=== PATIENT | female | born 1990 | race Caucasian/White ===

== ENCOUNTER 2018-12-03 01:53 | Emergency (ER) | payer BC, OTHER ==
[~2018-12-03] VITALS: Ht 175.3 cm; Wt 69.0 kg
[2018-12-03 01:55] VITALS: Ht 175.3 cm; Wt 69.0 kg
[2018-12-03] MEDS ORDERED: SOD CHLORIDE 0.9% 500 ML IV STA (02:39)
[2018-12-03] MEDS ORDERED: KETOROLAC 30 MG INJ IV STA (02:39)
[2018-12-03] MEDS ORDERED: morphine 2 MG INJ IV STA (02:39)
[2018-12-03] MEDS ORDERED: ONDANSETRON 4 MG INJ IV STA (02:39)
--- NOTE | 2018-12-03 03:52 | ERD ---
ER Documentation Chief Complaint Chief Complaint LOW BACK PAIN HPI This is a 27-year-old female with a nonsignificant past medical history presents ED with complaints of right low back pain that started this evening. Patient describes the back pain is sharp and states that is been constant. Denies any fall or injury to account for right low back pain. No similar pain in the past. Admits to nausea. Patient denies any dysuria, hematuria, increased frequency of urination, fever, chills, vomiting, ABDOMINAL PAIN, diarrhea, constipation, hemoptysis, hematemesis, hematochezia, melena, chest pain, shortness of breath, cough, congestion and all other symptoms. No IVDA ROS All systems reviewed and are negative except as per history of present illness. Allergies Allergies: Coded Allergies: No Known Allergy (Unverified , 12/03/18) PMhx/Soc Medical and Surgical Hx: pt denies Medical Hx, pt denies Surgical Hx Hx Alcohol Use: Yes (occassionally) Hx Substance Use: Yes (marijuana) Hx Tobacco Use: No Smoking Status: Current every day smoker FmHx Family History: No diabetes Physical Exam Vitals Vital Signs Date Temp Pulse Resp B/P (MAP) Pulse Ox O2 O2 Flow FiO2 Time Delivery Rate 12/03/18 99.0 74 18 109/59 97 01:55 (76) Physical Exam Physical Exam Vitals signs: Reviewed by me. General: Well developed, well nourished, in no acute distress. Patient is awake and alert. Head: Normocephalic, atraumatic. Eyes: Normal conjunctiva, Pupils PERRLA, EOM intact grossly ENT: Pharynx is clear, Moist mucous membranes, external ears, nose and mouth n ormal Neck: Supple, no masses, lymphadenopathy or JVD Respiratory: Clear to auscultation bilaterally with no wheezing, rhonchi, rales, no distress Cardiovascular: RRR, no murmurs, rubs, or gallops Abdominal: Soft, nondistended, no peritoneal signs, no rigidity, no surgical abdomen, bowel sounds present all 4 quadrants, nontender 90 palpation all 4 quadrants, no rebound tenderness, McBurney's point nontender, Sandoval sign negative Back: No midline tenderness. Right CVA tenderness present, mild tenderness palpation along the paravertebral muscles in the right lumbar spine Neurologic: Alert and oriented, moving all extremities, normal speech, no focal weakness, no cerebellar signs. Normal mentation Skin: warm and dry, No rash Psych: Normal mood Result Diagram: 12/03/187 12/03/18 025 Results 24 hrs Laboratory Tests Test 12/03/18 02:57 White Blood Count 11.8 10^3/ul Red Blood Count 4.22 10^6/ul Hemoglobin 13.2 g/dl Hematocrit 39.7 % Mean Corpuscular Volume 94.1 fl Mean Corpuscular Hemoglobin 31.3 pg Mean Corpuscular Hemoglobin Concent 33.2 g/dl Red Cell Distribution Width 13.0 % Platelet Count 226 10^3/UL Mean Platelet Volume 10.6 fl Immature Granulocytes % 0.200 % Neutrophils % 71.9 % Lymphocytes % 14.6 % Monocytes % 9.3 % Eosinophils % 3.3 % Basophils % 0.7 % Nucleated Red Blood Cells % 0.0 /100WBC Immature Granulocytes # 0.020 10^3/ul Neutrophils # 8.5 10^3/ul Lymphocytes # 1.7 10^3/ul Monocytes # 1.1 10^3/ul Eosinophils # 0.4 10^3/ul Basophils # 0.1 10^3/ul Nucleated Red Blood Cells # 0.0 10^3/ul Urine Color YELLOW Urine Clarity SLIGHTLY CLOUDY Urine pH 7.0 Urine Specific [place] 1.011 Urine Ketones NEGATIVE mg/dL Urine Nitrite NEGATIVE mg/dL Urine Bilirubin NEGATIVE mg/dL Urine Urobilinogen NEGATIVE mg/dL Urine Leukocyte Esterase 1+ Roberto/ul Urine Microscopic RBC 89 /HPF Urine Microscopic WBC 26 /HPF Urine Squamous Epithelial Cells FEW /HPF Urine Bacteria FEW /HPF Urine Hemoglobin 3+ mg/dL Urine Glucose NEGATIVE mg/dL Urine Total Protein 1+ mg/dl Urine Test NEGATIVE Sodium Level 140 mmol/L Potassium Level 3.7 mmol/L Chloride Level 101 mmol/L Carbon Dioxide Level 28 mmol/L Anion Gap 11 Blood Urea Nitrogen 10 mg/dl Creatinine 0.54 mg/dl Est Glomerular Filtrat Rate mL/min > 60 mL/min Glucose Level 96 mg/dl Calcium Level 9.1 mg/dl Total Bilirubin 0.1 mg/dl Direct Bilirubin 0.00 mg/dl Indirect Bilirubin 0.1 mg/dl Aspartate Amino Transf (AST/SGOT) 19 IU/L Alanine Aminotransferase (ALT/SGPT) 25 IU/L Alkaline Phosphatase 77 IU/L Total Protein 7.9 g/dl Albumin 4.4 g/dl Globulin 3.50 g/dl Albumin/Globulin Ratio 1.25 Lipase 61 U/L Current Medications Medications Dose Sig/Cheli Start Time Status Last (Trade) Ordered Route PRN Stop Time Admin Dose Reason Admin Sodium 500 ml @ Q1H STAT 12/03/18 DC 12/03/18 Chloride 500 mls/hr IV 02:39 03:00 12/03/18 03:38 Morphine 2 mg ONCE STAT 12/03/18 DC Sulfate IV 02:39 (morphine) 12/03/18 02:41 Ondansetron 4 mg ONCE STAT 12/03/18 DC 12/03/18 HCl (Zofran IV 02:39 03:05 Inj) 12/03/18 02:41 Ketorolac 30 mg ONCE STAT 12/03/18 DC 12/03/18 Tromethamine IV 02:39 03:34 (Toradol) 12/03/18 02:41 Procedures/MDM LAB INTERPRETATION: CBC remarkable for elevated WBC 11.8, no evidence of hemorrhage Chemistry shows no evidence of significant electrolyte abnormalities or renal in sufficiency Liver function test shows no evidence of acute biliary or hepatic dysfunction Lipase shows no evidence of acute pancreatitis UA remarkable for 26 WBC, 89 RBC, 1+ leukocyte esterase Urine negative ER COURSE: The patient was given morphine, IV normal saline, Toradol and Zofran The medication was well tolerated and the patient reports improvement in symptoms. The patient was stable throughout ED course. I kept the patient and/or family informed of laboratory and diagnostic imaging results throughout the emergency room course. The patient was promptly evaluated and a treatment plan was devised based on H&P and other data. This plan was discussed with the patient who agreed and had no further questions or concerns prior to discharge. MEDICAL DECISION MAKIN-year-old female presents ED with sharp right-sided lower back pain times 2 hours prior to arrival in ED. Patient does have some right CVA tenderness which prompted me to think pyelonephritis although she does not have any urinary symptoms. Patient urine is remarkable for RBC, WBC and leukocyte esterase. Given these findings along with history and physical exam patient likely has pyelonephritis. Patient was given 1 g of ceftriaxone in the emergency department and pain was well controlled. At this time there is no genitourinary emergency. No evidence of sepsis, obstructive pyelonephritis, septic stone, ovarian torsion, tubo-ovarian abscess, ectopic , among others. Vitals are stable patient can be managed close outpatient follow-up. Advised patient follow-up with her primary care in the next 48 hours. Return to ED with any worsening symptoms DISPOSITION PLAN: We discussed follow up with the patient's primary care doctor within 24 to 48 hours. Patient counseled regarding my diagnostic impression and care plan. Prior to discharge all questions answered. Pt agrees with treatment plan and understands strict return precautions. Precautionary instructions provided including instructions to return to the ER if not improving or for any worsening or changing symptoms or concerns. SPECIALIST FOLLOW UP RECOMMENDED: None Patient has been advised to follow up with primary care in 1-2 days. Disclaimer: Inadvertent spelling and grammatical errors are likely due to EHR/dictation software use and do not reflect on the overall quality of patient care. Also, please note that the electronic time recorded on this note does not necessarily reflect the actual time of the patient encounter. Departure Diagnosis: Primary Impression: Pyelonephritis Condition: Stable Patient Instructions: Pyelonephritis, Female (Adult) Referrals: [facility] Additional Instructions: Patient advised to return to the ED immediately for new or worsening symptoms. Patient advised to follow up with primary care provider in the next 24-48 hours. Patient verbalized understanding and agrees with treatment plan and course of action. If patient has no primary care they may follow up with one of the community clinics listed on the following page or one of the options listed below [facility] + [address] [address] or [facility] [address] [place] [address] [address] BUD ROLDAN PA-C Dec 03, 2018 03:52
[2018-12-03] MEDS ORDERED: IBUP-1542 PO (04:28)
[2018-12-03] MEDS ORDERED: CIPR500T4 PO (04:28)
[2018-12-03] MEDS ORDERED: CEFTRIAXONE 1 GM INJ IVPB ONE (04:30)
[2018-12-03 05:21] VITALS: BP 100/58; PULSE 60; RESP 20
== END 2018-12-03 05:10 | disposition home or self-care (01) ==
LOC: FTE 01:53
DX: N12 Tubulo-interstitial nephritis, not specified as acute or chronic (principal); F17.210 Nicotine dependence, cigarettes, uncomplicated
CPT/HCPCS: 36415; 80053; 81001; 83690; 84703; 85025; 87086; 96374; 96375; 99284; J0696; J1885; J2405; J7040; J2270